=== PATIENT | female | born 1960 | race Two or more races ===

== ENCOUNTER 2019-02-11 12:51 | Emergency (ER) | payer MEDICAID ==
[~2019-02-11] VITALS: Ht 157.5 cm; Wt 79.8 kg
[2019-02-11 12:57] VITALS: BP 153/99
== END 2019-02-11 14:18 | disposition home or self-care (01) ==
LOC: ER 12:59
DX: B02.9 Zoster without complications (principal); Z87.442 Personal history of urinary calculi; Z88.6 Allergy status to analgesic agent